=== PATIENT | male | born 1990 | race African-American/Black ===

== ENCOUNTER 2025-01-05 10:23 | Outpatient (AMB) | payer OTHER, SELFPAY ==
--- OUTSIDE RECORDS SUMMARY | 2024-12-27 12:47 | XMS_ITS | Continuity of Care Document ---
Author Organization [facility] Address [address] [place] [address] Phone Care Team Providers Care Appetizer Packer Name Role Phone [facility] , Admin Unavailable Unavailable Allergies, Adverse Reactions, Alerts Substance Reaction Status Criticality grass pollen Active No Information Medications Medication Instructions Dosage Effective Dates (start - stop) Status Comments Blood Glucose Monitoring kit to test blood glucose by fingerstick route daily - Active Alcohol Pads to clean fingertip prior to checking blood glucose daily - Active Lancets,Ultra Thin 26 gauge to test blood glucose by fingerstick daily - Active Blood Glucose Test strips use 1 strip by Subcutaneous route every day 1 strip - Active metformin ER 500 mg tablet,extended release 24 hr take 1 tablet by oral route every day with the evening meal 500 MG - Active Vitamin D3 50 mcg (2,000 unit) tablet take 1 tablet by mouth daily - Active Procedures Procedure Date No Show SYST BP < 130 MM HG DIAST BP 80-89 MM HG OFFICE/OUTPATIENT VISIT, EST ROUTINE VENIPUNCTURE Hemoglobin A1c HG A1C LEVEL < 7.0% HIV ANTIGENS W/HIV1 AND HIV2 ANTIBODIES COMPREHEN METABOLIC PANEL Treponema Pallidum COMPLETE CBC, AUTOMATED ASSAY OF VITAMIN D LIPID PANEL LDL-C>= 130 MG/DL ASSAY THYROID STIM HORMONE WELL EXAM, EST, AGE 18-39 SYST BP < 130 MM HG DIAST BP 80-89 MM HG IMMUNIZATION ADMIN URINALYSIS, AUTO, W/O SCOPE Influenza Quadrivalent Vacc Preservative Free 3+ Yr Advance Directives Directive Yes / No Effective Date File Name No Information Encounters Encounter Description Practice Location Reason(s) For Visit Diagnoses Date Provider Providers Copied on Encounter [facility], [address], [place], [place], [address] , [place] tel:[phone] Administration No Information 5 [facility] Admin. [address] [facility] [address], [place], [place], [address], [place]. tel:[phone] [facility], [address], [place], [place], [address] , [place] tel:[phone] [facility] No Information 4 Lindy Zarco. [address], [place], [place], [address], [place]. tel:[phone] [facility], [address], [place], [place], [address] , [place] tel:[phone] [facility] [place] No Information 3 Monserrat bAbott. [address] [facility] , [place], [place], [address], [place]. tel:[phone] Referring Provider: Carolee Israel, [address], [place], [address] . tel:[phone] OFFICE/OUTPA TIENT VISIT, EST [facility], [address], [place], [place], [address] , [place] tel:[phone] [facility] diabetes (chief complaint) hyperlipid emia(lipid ) (chief complaint) Morbid (severe) obesity due to excess caloriesVitamin D deficiency, unspecifiedHype rsomnia, unspecifiedType 2 diabetes mellitus without complicationsHy perlipidemia 3 Lindy Zarco. [address], [place], [place], [address], . tel:[phone] Referring Provider: Carolee Israel, [address], [place], [address] . tel:[phone] [facility], [address], [place], [place], [address] , [place] tel:[phone] [facility] 3 Lindy Zarco. [address], [place], [place], [address], [place]. tel:[phone] Referring Provider: Carolee Israel, [address], [place], [address] . tel:[phone] WELL EXAM, EST, AGE 18-39 [facility], [address], [place], [place], [address] , [place] [phone] [facility] Establish care (chief complaint) preventive exam (chief complaint) Flu shot (chief complaint) Morbid (severe) obesity due to excess caloriesWell adult exam w/o abnormal findingEncounte r for immunizationHyp ersomnia, unspecified 3 Lindy Zarco. [address], [place], [place], [address], [place]. tel:[phone] Referring Provider: Carolee Israel, [address], [place], [address] . tel:[phone] [facility], [address], [place], [place], [address] , [place] tel:[phone] [facility] New Patient (chief complaint) No Information 1 Lito Bassett. [address], [place], [place], [address], [place]. tel:[phone] Family History Family Member Type Diagnosis Age At Onset Father Problem Alive and well Father Problem Hypertension Problem Family history o f Diabetes mellitus Maternal grandmother Problem Cancer, unknown type Problem Family history of Hypertensi on Maternal grandmother Problem (finding) Mother Problem Cancer, unknown type Mother Problem Diabetes mellitus Immunizations Vaccine Date Status Comments TFM Fluzone Quad administered Note: [id number] ; Source: New Immunization Record Payers Payer name Insurance type Covered green party ID Authoriza tirajan(s) [facility] [id number] [facility] [id number] Social History Type Description Quantity Date Captured Comments Alcohol Use Details Unknown Caffeine Use Details Unknown Tobacco Use Status No Information Smoking Status No Information Sex Male Chief Complaint And Reason For Visit No Information Reason For Referral Reason For Referral No Information Plan Of Treatment Date Type Action Status Goal Td vaccine. Due on due Goal Pneumococcal vac cine 23. Due on due Goal HPV (). Due on due Goal Lipid panel. Due on 024 due Goal Tdap. Due on due Goal Influenza Vaccine. Due on due Goal Hepatitis C Screen. Due on due Goal Depression screening. Due on due Goal Dilated eye exam. Due on Jan due Goal Urine microalbumin. Due on due Goal Hemoglobin A1c. Due on due Goal Diabetes Educati on Class. Due on due Goal Foot exam. Due on due Goal HPV (1st). Due on due Goal Depression screening. Due on due Goal Influenza Vaccine. Due on Oc due Goal Hepatitis C Screen. Due on O due Goal Tdap. Due on due Goal Td vaccine. Due on due Goal Tdap. Due on due Goal Depression screening. Due on due Goal Document TOB Sta tus\ Cessation Advice. Due on due Goal Hepatitis C Screen. Due on A due Goal H&P. Due on due Goal Td vaccine. Due on due Goal Influenza Vaccine. Due on Au due Referral Referred To: Scar German MD [address] [place], [place], [phone] Ordered: Referrals: Ophthalmology. Scar German MD. Evaluate and treat ordered Referral Referred To: Mattie Ramirez MS RD [address] [place], [place], [phone] Ordered: Referrals: Garment Turner. Mattie Ramirez MS RD. Evaluate and treat ordered Future Order: Lab Order CBC, Malachi telet: No Differential (Hgm LH), Scheduled for: Ordered Future Order: Lab Order Comp Met abolic Panel (14) AU (Comp i AU), Scheduled for: Ordered Future Order: Lab Order Lipid Pa brooke calc LDL (Lipidcalc), Scheduled for: Ordered Future Order: Lab Order Hemoglob in A1c ([id number]), Scheduled for: Ordered Future Order: Lab Order Vitamin D 25 (VitD25), Scheduled for: Ordered History Of Present Illness Encounter Date Complaint History Of Prese nt Illness diabetes The diabetes curtis litus began in 2022. The problem is newly diagnosed. Risk factors include: race and family history diabetes mellitus. Patient is compliant with follow-up, and using education materials. Managing with: Oral medications. There are no associated symptoms. Pertinent negatives include chest pain, diarrhea, dyspnea and polydipsia. Additional information: Pt states he was not fasting for labs.. hyperlipidemia(lipid) The proble m has not changed. Reasons for screening include diabetes mellitus and diet. Reasons for screening do not include tobacco use. Pertinent negatives include abdominal pain, chest pain, claudication, constipation, diarrhea, fatigue, muscle weakness, pruritus and rash. Additional information: was not fasting for these lab results. Flu shot Pt here for Fluz one Quadrivalent 0.5mL influenza vaccine ([facility]:[id number]), which pt tolerated injection to right deltoid well with no side effects/allergic reactions seen/noted after 15 minute waiting period.-ap. Establish care Pt states that camelia tijerina has not had PCP in few years and would like updated STD screening, Pt denies being sexually active for past Two years. Pt also states that he has hernia that does not cause pain but would like more information on. Pt has Family History of Diabetes and hypertension preventive exam Men's preventive visit. The patient has no weight gain/loss. Marital status: Single. Concern(s)/Requests Detail: 32 y/o here for well exam. ventral hernia asymptomatic. reassurance provided. Relevant history is positive for alcohol use. Relevant history is negative for tobacco use. New Patient Establish Primar y Care Functional Status Date Functional Assessmen t No Information Instructions Date Instruction Additional Infor yaya Dietary needs education Related to Morbid (severe) obesity due to excess calories Dietary needs education Related to Morbid (severe) obesity due to excess calories Assessments Type Assessment Date No Information Patient Care Teams Name Effective Dates (start - stop) Status Members No Information
--- NOTE | 2025-01-05 10:26 | AM.OFFWIN_ITS ---
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 with DM, was put on meds then he lost his insurance Allergies No Known Allergies Allergy (Verified 01/05/25 10:27) HPI HPI Comments History of Present Illness Details This is a 34-year-old male with a past medical history of vzq-iiogxrv-feqtyhfbh diabetes presenting for evaluation of urinary frequency and blurry vision. Patient was diagnosed with diabetes in February 2024 and was prescribed metformin to take twice daily. Patient states that his medication ran out 1 month later and he lost his insurance and has been without medication since that time. Patient reports frequent urination and thirst starting in September 2024. Patient has been drinking increased water daily and denies having any dysuria or penile discharge. Patient states he was working on the computer last week and noted that his vision has become blurry both with near vision and far vision. He denies having any floaters, flashes or foreign body sensation in his eyes. Patient has an appointment to have his [facility] checked through [facility] next week, but has not yet obtained a primary care physician. Last year the patient was residing in [place] and he is new to the area here in [facility]. Review of Systems Const All systems reviewed & are unremarkable except as noted in HPI and below Denies body aches, Denies chills, Denies fatigue, Denies fever(s) and Denies night sweats Eyes Reports change in vision, Denies floaters, Denies irritation, Denies itchy eyes, Denies seeing flashes, Denies photophobia and Denies spots in vision ENT Reports no additional complaints Card Reports no additional complaints Resp Reports no additional complaints GI Reports no additional complaints, Denies nausea and Denies vomiting Denies dysuria, Denies flank pain, Reports nocturia, Denies penile discharge, Reports urinary frequency and Denies urinary incontinence Musc Reports no additional complaints Skin/Breast Reports system reviewed and no additional complaints, except as documented Neuro Reports no additional complaints Psych Reports no additional complaints Endo Reports no additional complaints, Denies fatigue, Denies polyphagia, Reports polydipsia and Reports polyuria Dru/Lymph Reports no additional complaints Aller/Immun Reports no additional complaints and Denies itchy eyes Physical Exam Vital Signs: Last Vital Signs Temp 98.7 F 01/05/25 10:27 Pulse 96 01/05/25 10:27 Resp 16 01/05/25 10:27 BP 112/78 01/05/25 10:27 Pulse Ox 97 01/05/25 10:27 Oxygen Delivery Method Room Air 01/05/25 10:27 BMI result Body Mass Index 36.0 Const General: cooperative, healthy appearing, comfortable, no acute distress, well developed, alert, awake and Physically active; No diaphoretic, ill appearing or lethargic Nutritional Appearance: well nourished Orientation/consciousness: patient oriented x3 and No lethargic Limitations: no limitations Eyes General: appearance normal, both eyes and all related structures Visual Pinto: normal visual pinto by confrontation Alignment and Position: alignment normal Periorbital: periorbital findings normal Eyelids: Yes eyelids normal Conjunctivae: conjunctivae normal Sclerae: sclerae normal Corneas: corneas normal Pupils: Equal, round and reactive pupils present and Pupils normal by confrontation EOM: EOMs intact bilaterally Direct Ophthalmoscopy: normal light reflex, no photophobia and No photophobia Resp Effort & Inspection: normal respiratory effort Auscultation: clear to auscultation bilaterally Cardio Rate: regular rate Rhythm: regular rhythm General: Yes Bimanual renal exam normal bilaterally, Yes bladder normal to palpation and Yes no CVA tenderness Back/Spine/Pelvis Back: no CVA tenderness Neuro General: patient oriented x3, no focal motor deficits and CN's II-XI intact bilaterally Cranial nerves: Yes Equal, round and reactive pupils present Cognition (Neuro): normal cognition Gait exam (Neuro): Normal gait present Psych Appearance: grossly normal Mental Status: mental status grossly normal Insight: Good insight present (Psych) Judgement: Good judgement present (Psych) Results AMB Random Glucose (hemocue) AMB Random Glucose (hemocue) 234 mg/dL Last Edit by Nisa Dudley CMA on 01/05/25 10:42 AMB Urinalysis, Automated UA Leukoctes 0 Agustina/uL Last Edit by Nisa Dudley CMA on 01/05/25 10:43 UA Nitrite Negative Last Edit by Nisa Dudley CMA on 01/05/25 10:43 UA Urobilinogen 0.2 mg/dL Last Edit by Nisa Dudley CMA on 01/05/25 10:43 UA Protein 0 mg/dL Last Edit by Nisa Dudley CMA on 01/05/25 10:43 UA pH 6.0 Last Edit by Nisa Dudley CMA on 01/05/25 10:43 UA Blood 0 Garland/uL Last Edit by Nisa Dudley CMA on 01/05/25 10:43 UA Specific [place] 1.015 Last Edit by Nisa Dudley CMA on 01/05/25 10:43 UA Ketone Positive Last Edit by Nisa Dudley CMA on 01/05/25 10:43 UA Bilirubin 0 mg/dL Last Edit by Nisa Dudley CMA on 01/05/25 10:43 UA Glucose 1000 mg/dL Last Edit by Nisa Dudley CMA on 01/05/25 10:43 Results Reviewed Results Reviewed: Patient has not eaten yet today and therefore fasting blood glucose is 234 mg/dL. Urinalysis +3 Glucose. Results discussed with patient. Assessment & Plan Assessment & Plan (1) Hyperglycemia: Comment: Patient's history coupled with his examination and laboratories are consistent with hyperglycemia. Urinary tract infection or STI significantly less likely. Patient has an appointment to have his vision evaluated next week and he is given business cards for local primary care physician offices. Patient will be discharged home with metformin. Code(s): R73.9 - Hyperglycemia, unspecified Plan: Metformin 500 mg b.i.d. to be taken with food. Patient will initially take metformin once daily in the morning for 1 week and then initiate b.i.d. dosing. Follow up with PCP as soon as possible for ongoing management of his hyperglycemia. Vision testing as previously scheduled next week. Orders: Orders AMB Random Glucose (hemocue) Today Z13.9 - Encounter for screening, unspecified AMB Urinalysis Automated Today Z13.9 - Encounter for screening, unspecified Medications: New metformin Take twice daily with food 500 mg PO BID 30 tabs 1RF Coding Level of Care Code New Pt Level 4 (05891) Diagnoses Hyperglycemia R73.9 Time Spent (min) 35
[2025-01-05 10:27] VITALS: BP 112/78; PULSE 96; RESP 16; TEMP 37.1; O2SAT 97; BMI 36.0
== END 2025-01-05 11:20 | disposition home or self-care (01) ==
LOC: HO.HMCWIC 10:23
PROVIDERS: Visit Provider Physician Assistant
DX: R73.9 Hyperglycemia, unspecified (principal); Z13.9 Encounter for screening, unspecified

== ENCOUNTER → 2025-01-05 10:23 | Outpatient (BNVA) | payer OTHER, SELFPAY | PROVIDERS: Visit Provider Physician Assistant | DX: E11.65 Type 2 diabetes mellitus with hyperglycemia (principal); R35.0 Frequency of micturition; H53.8 Other visual disturbances | CPT/HCPCS: 81003; 82948 ==

== ENCOUNTER 2025-01-24 08:07 | Outpatient (AMB) | payer OTHER, SELFPAY ==
--- OUTSIDE RECORDS SUMMARY | 2024-12-27 12:47 | XMS_ITS | Continuity of Care Document ---
Author Organization [facility] Address [address] [place] [address] Phone Care Team Providers Care Element Burner Name Role Phone [facility] , Admin Unavailable Unavailable Allergies, Adverse Reactions, Alerts Substance Reaction Status Criticality grass pollen Active No Information Medications Medication Instructions Dosage Effective Dates (start - stop) Status Comments Vitamin D3 50 mcg (2,000 unit) tablet take 1 tablet by mouth daily - Active metformin ER 500 mg tablet,extended release 24 hr take 1 tablet by oral route every day with the evening meal 500 MG - Active Blood Glucose Monitoring kit to test blood glucose by fingerstick route daily - Active Blood Glucose Test strips use 1 strip by Subcutaneous route every day 1 strip - Active Lancets,Ultra Thin 26 gauge to test blood glucose by fingerstick daily - Active Alcohol Pads to clean fingertip prior to checking blood glucose daily - Active Procedures Procedure Date No Show DIAST BP 80-89 MM HG SYST BP < 130 MM HG OFFICE/OUTPATIENT VISIT, EST ROUTINE VENIPUNCTURE [...] Providers Copied on Encounter [facility], [address], [place], [place], [address] , [place] tel:[phone] Administration No Information 5 [facility] Admin. [address] [facility] [address], [place], [place], [address], [place]. tel:[phone] [facility], [address], [place], [place], [address] , [place] tel:[phone] [facility] No Information 4 Lindy Zarco. [address], [place], [place], [address], [place]. tel:[phone] [facility], [address], [place], [place], [address] , [place] tel:[phone] [facility] [place] No Information 3 Monserrat Abbott. [address] [facility] , [place], [place], [address], [place]. tel:[phone] Referring Provider: Carolee Israel, [address], [place], [address] . tel:[phone] OFFICE/OUTPA TIENT VISIT, EST [facility], [address], [place], [place], [address] , [place] tel:[phone] [facility] diabetes (chief complaint) hyperlipid emia(lipid ) (chief complaint) Morbid (severe) obesity due to excess caloriesVitamin D deficiency, unspecifiedHype rsomnia, unspecifiedType 2 diabetes mellitus without complicationsHy perlipidemia 3 Lindy Zarco. [address], [place], [place], [address], . tel:[phone] Referring Provider: Carolee Israel, [address], [place], [address] . tel:[phone] [facility], [address], [place], [place], [address] , [place] tel:[phone] [facility] 3 Lindy Zarco. [address], [place], [place], [address], [place]. tel:[phone] Referring Provider: Carolee Israel, [address], [place], [address] . tel:[phone] WELL EXAM, EST, AGE 18-39 [facility], [address], [place], [place], [address] , [place] [phone] [facility] Establish care (chief complaint) preventive exam (chief complaint) Flu shot (chief complaint) Morbid (severe) obesity due to excess caloriesWell adult exam w/o abnormal findingEncounte r for immunizationHyp ersomnia, unspecified 3 Lindy Zarco. [address], [place], [place], [address], [place]. tel:[phone] Referring Provider: Carolee Israel, [address], [place], [address] . tel:[phone] [facility], [address], [place], [place], [address] , [place] tel:[phone] [facility] New Patient (chief complaint) No Information 1 Lito Bassett. [address], [place], [place], [address], [place]. tel:[phone] Family History Family Member Type Diagnosis Age At Onset Mother Problem Diabetes mellitus Mother Problem Cancer, unknown type Maternal grandmother Problem (finding) Problem Family history of Hypertensi on Maternal grandmother Problem Cancer, unknown type Problem Family history o f Diabetes mellitus Father Problem Hypertension Father Problem Alive and well Immunizations Vaccine Date Status Comments TFM Fluzone Quad administered Note: [id number] ; Source: New Immunization Record Payers Payer name Insurance type Covered republican ID Authoriza tirajan(s) [facility] [id number] [facility] [id number] Social History Type Description Quantity Date Captured Comments Alcohol Use Details Unknown Caffeine Use Details Unknown Tobacco Use Status No Information Smoking Status No Information Sex Male Chief Complaint And Reason For Visit No Information Reason For Referral Reason For Referral No Information Plan Of Treatment Date Type Action Status Goal Depression screening. Due on due Goal Hepatitis C Screen. Due on due Goal Influenza Vaccine. Due on due Goal Tdap. Due on due Goal Lipid panel. Due on 024 due Goal HPV (1st). Due on 3 due Goal Pneumococcal vac cine 23. Due on due Goal Td vaccine. Due on due Goal Dilated eye exam. Due on Jan due Goal Urine microalbumin. Due on due Goal Hemoglobin A1c. Due on due Goal Diabetes Educati on Class. Due on due Goal Foot exam. Due on 3 due Goal HPV (1st). Due on 3 due Goal Td vaccine. Due on due Goal Tdap. Due on due Goal Hepatitis C Screen. Due on O due Goal Influenza Vaccine. Due on Oc due Goal Depression screening. Due on due Goal Tdap. Due on due Goal Depression screening. Due on due Goal Document TOB Sta tus\ Cessation Advice. Due on due Goal Hepatitis C Screen. Due on A due Goal H&P. Due on due Goal Td vaccine. Due on due Goal Influenza Vaccine. Due on Au due Referral Referred To: Scar German MD [address] [place], [place], [phone] Ordered: Referrals: Ophthalmology. Scar German MD. Evaluate and treat ordered Referral Referred To: Mattie Ramirez MS RD [address] [place], [place], [phone] Ordered: Referrals: [facility] Aides Teacher. Mattie Ramirez MS RD. Evaluate and treat ordered Future Order: Lab Order CBC, Malachi telet: No Differential (Hgm LH), Scheduled for: Ordered Future Order: Lab Order Comp Met abolic Panel (14) AU (Comp i AU), Scheduled for: Ordered Future Order: Lab Order Lipid Pa brooke calc LDL (Lipidcalc), Scheduled for: Ordered Future Order: Lab Order Hemoglob in A1c ([id number]), Scheduled for: Ordered Future Order: Lab Order Vitamin D 25 (VitD25), Scheduled for: Ordered History Of Present Illness Encounter Date Complaint History Of Prese nt Illness hyperlipidemia(lipid) The proble m has not changed. Reasons for screening include diabetes mellitus and diet. Reasons for screening do not include tobacco use. Pertinent negatives include abdominal pain, chest pain, claudication, constipation, diarrhea, fatigue, muscle weakness, pruritus and rash. Additional information: was not fasting for these lab results. diabetes The diabetes curtis litus began in 2022. The problem is newly diagnosed. Risk factors include: race and family history diabetes mellitus. Patient is compliant with follow-up, and using education materials. Managing with: Oral medications. There are no associated symptoms. Pertinent negatives include chest pain, diarrhea, dyspnea and polydipsia. Additional information: Pt states he was not fasting for labs.. preventive exam Men's preventive visit. The patient has no weight gain/loss. Marital status: Single. Concern(s)/Requests Detail: 32 y/o here for well exam. ventral hernia asymptomatic. reassurance provided. Relevant history is positive for alcohol use. Relevant history is negative for tobacco use. Flu shot Pt here for Fluz one Quadrivalent 0.5mL influenza vaccine ([facility]:[id number]), which pt tolerated injection to right deltoid well with no side effects/allergic reactions seen/noted after 15 minute waiting period.-ap. Establish care Pt states that h e has not had PCP in few years and would like updated STD screening, Pt denies being sexually active for past Two years. Pt also states that he has hernia that does not cause pain but would like more information on. Pt has Family History of Diabetes and hypertension New Patient Establish Primar y Care Functional [...]
--- NOTE | 2025-01-24 08:10 | A.OFFPC_ITS ---
Vital Signs 01/24/25 08:14 Height 6 ft 1.82 in Weight 288 lb BMI 37.2 BP 120/96 H Blood Pressure Location Lt brachial Position Sitting Respiration 18 Pulse 87 Pulse Source Pulse Oximeter Temp 7.2 F L Temp Source Temporal Artery Scan Pulse Oximetry (%) 98 Oxygen Delivery Method Room Air Intake Visit Reasons: New Patient Glaze Mixer Required: No Accompanied by: Self / Same As Patient Allergies No Known Allergies Allergy (Verified 01/24/25 08:10) Tobacco use date assessed: 01/24/25 Dental Screening Dental Screen Date: 01/24/25 Did you have a dental visit in the last 12 months?: Yes Did you have a dental problem in the last 6 months where you did not have access to dental care?: No Was dental information given to patient?: Patient has dentist HPI HPI Comments History of Present Illness Details The patient is a 34-year-old male presenting with a history of Type 2 Diabetes Mellitus for follow-up. The patient was initially diagnosed with diabetes last year and had been prescribed metformin as the primary management strategy. Due to insurance issues, the patient was unable to continue metformin from April this year until recently. During the period without medication, the patient experienced symptoms of blurred vision and increased urinary frequency, prompting him to seek medical attention from his physician. Since resuming metformin, the patient has reported improvement in these symptoms. In addition to the management of diabetes, the patient has a concurrent diagnosis of depression, for which he is taking bupropion. This medication was prescribed to address stress-induced eating behaviors, particularly his tendency to consume large quantities of sweets when stressed. He reports a cessation of these eating habits since starting the medication. Medical History: - Diagnosed with Type 2 Diabetes Mellitu s last year, managed with metformin - Depression, managed with bupropion Surgical History: - Recent tooth extraction last week Medications: - Metformin 500 mg twice daily for Type 2 Diabetes Mellitus - Bupropion for depression and managemen t of stress eating behavior - Amoxicillin for post-dental extraction Family History: - Father's side: Family history of diabe danyel and heart disease - Mother's side: Family history of cance r Social History: - No alcohol use - No history of smoking or use of recrea tional drugs - Tendency for stress eating of sweets, managed by current medication [facility] Medical History (Updated 01/24/25 @ 08:31 by Go Guerra MD) Other specified eating disorder Diabetes Social History Housing: Apartment Patient Tobacco Use Status: Never used Tobacco e-Cigarette/Vaping Use: Never Used service: No Current occupational status: employed Current occupation: [employer] Questionnaire PHQ-9 Over the last 2 weeks, how often have you been bothered by any of the following problems? 1. Little interest or pleasure in doing things: not at all 2. Feeling down, depressed, or hopeless: not at all 3. Trouble falling or staying asleep, or sleeping too much: not at all 4. Feeling tired or having little energy: not at all 5. Poor appetite or overeating: not at all 6. Feeling bad about yourself - or that you are a failure or have let yourself or your family down: not at all 7. Trouble concentrating on things, such as reading the newspaper or watching television: not at all 8. Moving or speaking so slowly that other people could have noticed. Or the opposite - being so fidgety or restless that you have been moving around a lot more than usual: not at all 9. Thoughts that you would be better off or of hurting yourself in some way: not at all Total score: 0 Depression Screening Interpretation: Negative Depression Screening Done: Yes 51759 - PHQ-9 Billing: Yes Source: Developed by Drs. Kalia Langley, Margoth Banks, Jamie Dobbins and colleagues, with an educational julia from [employer]. Thrive Questionnaire Date Thrive assessed: 01/24/25 I am a: Patient What is your living situation today?: I have a steady place to live Within the past 12 months, did the food you bought not last and you didn't have the money to get more?: Never true Within the past 12 months, did you worry whether your food would run out before you got money to buy more?: Never true Do you have trouble paying for medicines?: No Do you have trouble getting transportation to medical appointments?: No Do you have trouble paying your heating and electricity bill?: No Do you have trouble taking care of your child, family member or friend?: No Do you have trouble with day-to-day activities such as bathing, preparing meals, shopping, managing finances, etc.?: No Are you currently unemployed and looking for a job?: No Are you interested in more education?: No THRIVE Score: 0 AUDIT C Alcohol Use Questionnaire (AUDIT-C) 1. How often do you have a drink containing alcohol?: Never 3. How often do you have six or more drinks on one occasion?: Never Total Score: 0 Score Reviewed/Action Taken: Yes SHELBIE-7 AMB Questionnaire SHELBIE-7 Date SHELBIE - 7 assessed: 01/24/25 Feeling nervous, anxious, or on edge: 0 = Not at all Not being able to stop or control worryin = Not at all Worrying too much about different things: 0 = Not at all Trouble relaxin = Not at all Being so restless that it is hard to sit still: 0 = Not at all Becoming easily annoyed or irritable: 0 = Not at all Feeling afraid as if something awful might happen: 0 = Not at all Total SHELBIE-7 score (0-4 normal; 5-9 mild; 10-14 moderate; 15-21 severe): 0 Source: Developed by Drs. Kalia Langley, Margoth Banks, Jamie Dobbins and colleagues, with an educational julia from [employer]. SHELBIE-7 Assessment Billing SHELBIE-7 Assessment Tool: SHELBIE-7 Assessment 87114 Review of Systems Narrative - Eyes: Reports blurred vision - Genitourinary: Reports increased urinary frequency - Gastrointestinal: Reports diarrhea since starting metformin - General: Denies other significant symptoms All systems reviewed & are unremarkable except as reviewed in HPI and above Physical exam (Primary Care) Vital Signs: Last Vital Signs Temp 7.2 F L 01/24/25 08:14 Pulse 87 01/24/25 08:14 Resp 18 01/24/25 08:14 BP 120/96 H 01/24/25 08:14 Pulse Ox 98 01/24/25 08:14 Oxygen Delivery Method Room Air 01/24/25 08:14 BMI result Body Mass Index 37.2 Tobacco/Smoking Status: Tobacco use Status Tobacco use date assessed 01/24/25 01/24/25 08:13 Patient Tobacco Use Status Never used Tobacco 01/24/25 08:18 e-Cigarette/Vaping Use Never Used 01/24/25 08:18 Depression Screening Interpretation: Negative Narrative General: +Alert and oriented, Well nourished, No acute distress. Eye: Pupils are equal, round and reactive to light, Intact accommodation, Extraocular movements are intact, Normal conjunctiva, Vision blurred. HENT: Normocephalic, Atraumatic, Tympanic membranes are clear, Normal hearing, Oral mucosa is moist, No pharyngeal erythema, Ear canals patent. Respiratory: Lungs CTA bilaterally, No wheeze, Respirations are non-labored. Cardiovascular: Regular rate, Regular rhythm, S1 auscultated, S2 auscultated, No murmur, Good pulses equal in all extremities, Normal peripheral perfusion, No edema. Gastrointestinal: Soft, Non-tender, Non-distended, Normal bowel sounds, No organomegaly. Musculoskeletal: Normal range of motion, Normal strength, No tenderness, No swelling, No deformity, Normal gait. Integumentary: Warm, Dry, Steinauer, Intact. Neurologic: Alert, Oriented, Normal sensory, Normal motor function, No focal defects, Cranial Nerves II-XII are grossly intact, Normal deep tendon reflexes. Psychiatric: Cooperative, Appropriate mood & affect, Normal judgment. Coding Level of Care Code Est Pt Level 4 (02260) Complex EM visit Add On G2211 Diagnoses Type 2 diabetes mellitus without complication, without long-term current use of insulin E11.9 Diabetes mellitus complication status: without complication Diabetes mellitus half-way insulin use: without half-way use Diabetes mellitus type: type 2 Other specified eating disorder F50.89 Additional Codes PHQ-9 - 40572 - PHQ-9 Billing: Yes ([id number]) SHELBIE-7 Assessment Billing - SHELBIE-7 Assessment Tool: SHELBIE-7 Assessment 22223 ([id number]) Assessment & Plan Assessment & Plan (1) Diabetes: Comment: - The patient has resumed metformin 500 mg twice daily which has led to improvement in previous symptoms of blurred vision and increased urinary frequency. - Ordered labs for hemoglobin A1c, electrolytes, lipid profile, vitamin D, HIV, syphilis, and hepatitis panels to monitor diabetes control and overall health. - Advised dietary modifications to reduce intake of salt, fatty, and processed foods, with an emphasis on controlling sweets and junk food intake, given the family history of heart disease and diabetes. - Recommended follow-up in three months with a repeat A1c one week prior to the visit to assess diabetes management efficacy and adjust treatment as needed. Code(s): E11.9 - Type 2 diabetes mellitus without complications Category: Medical Qualifiers: Diabetes mellitus complication status: without complication Diabetes mellitus rat exterminator insulin use: without rat exterminator use Diabetes mellitus type: type 2 Qualified Code(s): E11.9 - Type 2 diabetes mellitus without complications (2) Other specified eating disorder: Comment: - Continue bupropion as prescribed for stress-related eating - The patient reports decreased stress eating behaviors with current medication regimen. Code(s): F50.89 - Other specified eating disorder Category: Medical Plan: Health Maintenance: - Ordered comprehensive lab tests including A1c and lipid profile as part of diabetes management. - Dietary counseling to reduce risks associated with family history of diabetes and heart disease. Patient was informed and verbally consented to the use of an ambient scribe for clinic note documentation during this visit. Plan I discussed the management of the patient's Type 2 Diabetes Mellitus, focusing on the resumption of metformin therapy and its impact on symptom improvement. We emphasized the importance of regular monitoring of blood glucose levels and A1c to prevent long-term complications. We reviewed dietary modifications aimed at reducing cardiovascular risk factors, considering the patient's family history of diabetes and heart disease. Additionally, we confirmed the current depression management is effective with bupropion. Follow-up was scheduled in three months with a repeat A1c prior to the next appointment for review. The benefits of compliance with diabetic management and the feedback loop of lab results were explained in detail to the patient. Orders: Orders Comprehensive Met. Panel Today Z76.89 - Persons encountering health services in other specified circumstances Hemoglobin A1c 3 Months E11.9 - Type 2 diabetes mellitus without complications Complete Blood Count Auto Diff Today Z76.89 - Persons encountering health services in other specified circumstances Hepatitis A,B,C Profile Today Z76.89 - Persons encountering health services in other specified circumstances Hemoglobin A1c Today Z76.89 - Persons encountering health services in other specified circumstances HIV Ab/Ag Today Z76.89 - Persons encountering health services in other specifi ed circumstances Lipid Panel Today Z76.89 - Persons encountering health services in other specified circumstances Syphilis Screen Today Z76.89 - Persons encountering health services in other specified circumstances TSH reflex Free T4 Today Z76.89 - Persons encountering health services in other specified circumstances Vitamin D 25-OH Total Today Z76.89 - Persons encountering health services in other specified circumstances Microalbumin, Random (w Creat) Today E11.9 - Type 2 diabetes mellitus without complications Patient Instructions: - Continue taking metformin as prescribed. - Follow a low-salt, low-fat diet and limit sweets and junk food. - Complete the ordered lab tests as soon as possible. - Repeat A1c approximately one week before the next appointment. - Follow up in three months for further evaluation. - Monitor any further symptoms and use the patient portal to notify of any concerns.
[2025-01-24 08:14] VITALS: BP 120/96; PULSE 87; RESP 18; TEMP -13.8; TEMP 7.2; O2SAT 98; BMI 37.2
== END 2025-01-24 08:30 | disposition home or self-care (01) ==
LOC: HO.HMCHD 08:07
PROVIDERS: Visit Provider Student in an Organized Health Care Education/Training Program
DX: E11.9 Type 2 diabetes mellitus without complications (principal); F50.89 Other specified eating disorder

== ENCOUNTER → 2025-01-24 08:07 | Outpatient (BNVA) | payer OTHER, SELFPAY | PROVIDERS: Visit Provider Student in an Organized Health Care Education/Training Program | DX: E11.9 Type 2 diabetes mellitus without complications (principal); F50.89 Other specified eating disorder; F32.A Depression, unspecified; Z79.84 Long term (current) use of oral hypoglycemic drugs; Z79.899 Other long term (current) drug therapy; Z13.31 Encounter for screening for depression; Z13.39 Encounter for screening examination for other mental health and behavioral disorders | CPT/HCPCS: 96127 ==

== ENCOUNTER 2025-01-24 08:32 | Outpatient (REF) | payer OTHER, SELFPAY ==
[2025-01-24 09:52] LABS: MANUAL DIFF FLAG NO
[2025-01-24 09:55] LABS: Hematocrit 46.0 % (42.0-52.0); Hemoglobin 15.0 g/dl (14.0-18.0); Imm Gran Abs Auto 0.02 X10*3/uL (0.00-0.03); Imm Gran Pct Auto 0.3 % (0.0-0.4); Lymphocytes Absolute Auto 3.5 X10*3/uL (1.2-4.9); Mean Corpuscular HGB Conc 32.6 g/dl (31.0-36.0); Mean Corpuscular Hemoglobin 27.7 pg (27.0-33.0); Mean Corpuscular Volume 85.0 fL (80.0-98.0); NRBC Abs Auto 0.000 X10*3/uL (0.0-0.012); NRBC Pct Auto 0.0 /100WBC (0.0-0.2); Platelet Count 347 X10*3/uL (160-400); Red Blood Count 5.41 X10*6/uL (4.60-5.80); White Blood Count 7.8 X10*3/uL (4.8-10.8)
[2025-01-24 10:20] LABS: Microalbum/Creatinine Ratio Ur 7.4 ug/mg cr (<30)
[2025-01-24 10:21] LABS: Alanine Aminotransferase 46 U/L (0-40); Albumin Level 4.5 g/dL (3.5-5.0); Alkaline Phosphatase 95 U/L (39-117); Anion Gap 11 (12-20); Aspartate Amino Transferase 33 U/L (5-37); Blood Urea Nitrogen 10 mg/dL (9-16); Calcium 9.5 mg/dL (8.4-10.2); Carbon Dioxide 26 mmol/L (22-29); Chloride 107 mmol/L (96-108); Cholesterol 290 mg/dL (<200); Estimated Glomerular Filt Rate > 60; HDL Cholesterol 34 mg/dL (>40); Potassium 4.2 mmol/L (3.3-5.1); Sodium 140 mmol/L (135-145); Total Protein 7.6 g/dL (6.5-8.0); Triglycerides 401 mg/dL (<150)
[2025-01-24 10:38] LABS: Syphilis Screen Nonreactive (Nonreactive)
[2025-01-24 10:40] LABS: HBS Num1 5.60 mIU/mL (0-7.99); HBc Num1 0.45 S/CO (0.00-0.79); HBsAGNum1 0.50 S/CO (0.00-0.99); HIV Num 1 0.05 S/CO (0.00-0.99); Hepatitis A Antibody IgM 0.19 Index (0-0.79); Hepatitis B Surface Antigen Negative (Negative); ~HepC Num1 0.18 S/CO (0.00-0.79); ~Hepatitis A Antibody IgM Nonreactive (Nonreactive); ~Hepatitis B Surface Antibody NONREACTIVE (Nonreactive); ~Hepatitis C Antibody Nonreactive (Nonreactive)
== END 2025-01-24 08:33 | disposition home or self-care (01) ==
LOC: HO.10HDL 08:32
PROVIDERS: Visit Provider Student in an Organized Health Care Education/Training Program
DX: Z76.89 Persons encountering health services in other specified circumstances (principal); E11.9 Type 2 diabetes mellitus without complications; Z11.59 Encounter for screening for other viral diseases; Z11.4 Encounter for screening for human immunodeficiency virus [HIV]; Z01.84 Encounter for antibody response examination
CPT/HCPCS: 36415; 80053; 80061; 82043; 82306; 82570; 83036; 84443; 85025; 86704; 86706; 86709; 86780; 86803; 87340; 87389

== ENCOUNTER 2025-02-16 10:15 | Outpatient (AMB) | payer OTHER, SELFPAY ==
[2025-02-16 10:19] VITALS: BP 110/70; PULSE 101; RESP 16; TEMP 36.8; O2SAT 96; BMI 37.5
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
[2025-02-16 11:38] VITALS: PULSE 88
== END 2025-02-16 11:03 | disposition home or self-care (01) ==
PROVIDERS: PCP Student in an Organized Health Care Education/Training Program; Visit Provider Nurse Practitioner Family
DX: M25.561 Pain in right knee (principal); V89.2XXA Person injured in unspecified motor-vehicle accident, traffic, initial encounter; M25.562 Pain in left knee; M25.512 Pain in left shoulder; M79.604 Pain in right leg; M79.605 Pain in left leg

== ENCOUNTER 2025-02-16 10:15 | Outpatient (REF) | payer OTHER, SELFPAY ==
--- NOTE | ~2025-02-16 | XR_ITS ---
CLINICAL HISTORY: Left shoulder pain. 3 view left shoulder Comparison: None provided Findings: Mild osteoarthritis of the left AC joint. Mild bowing in the minimal deformity of the left clavicle appears old/chronic. Anatomic alignment of the left glenohumeral joint. No acute displaced fracture. Atelectasis is partially imaged in the [id number]. IMPRESSION: 1. No acute fracture or dislocation. 2. Mild and/or early osteoarthritis of the imaged left AC joint by radiographs. This document has been electronically signed by: Oneil Baez MD on 02/16/2025 12:19:30
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
== END 2025-02-16 10:16 | disposition home or self-care (01) ==
LOC: HO.HMGCX 10:15
PROVIDERS: PCP Student in an Organized Health Care Education/Training Program; Visit Provider Nurse Practitioner Family
DX: M25.561 Pain in right knee (principal); M25.562 Pain in left knee; M25.512 Pain in left shoulder; M79.604 Pain in right leg; M79.605 Pain in left leg; V43.52XA Car driver injured in collision with other type car in traffic accident, initial encounter
CPT/HCPCS: 73030; 73564

== ENCOUNTER → 2025-02-16 10:48 | Outpatient (BNV) | payer OTHER, SELFPAY | PROVIDERS: PCP Student in an Organized Health Care Education/Training Program; Visit Provider Radiology Neuroradiology | DX: M25.461 Effusion, right knee (principal); M25.462 Effusion, left knee; M19.012 Primary osteoarthritis, left shoulder | CPT/HCPCS: 73030; 73564 ==